=== PATIENT | female | born 1945 | race Caucasian/White ===

== ENCOUNTER 2016-12-17 14:41 | Emergency (ER) | payer OTHER, BC ==
[~2016-12-17] VITALS: Ht 152.4 cm; Wt 77.1 kg
--- NOTE | ~2016-12-17 | EKG ---
[place] [address] [facility] [place] [address] ELECTROCARDIOGRAM REPORT Name: DAVID IBRAHIM Room #: DEP [facility]#: [id number] Admission: 12/17/16 Attend Phys: Discharge: 12/17/16 Date of : 41 Report #: [id number] THIS REPORT FOR: //name// [facility] ED Test Date: 2016-12-17 Test Time: 17:16:39 Pat Name: DAVID IBRAHIM Department: Room: Gender: F Supervisor Edging: huey : 1945 Requested By: Amanda Gutierrez Order Number: [id number] MD: Lucio Post Measurements Intervals [place] Rate: 84 P: 42 MD: 265 QRS: 56 QRSD: 152 T: -22 QT: 413 QTc: 489 Interpretive Statements Sinus rhythm Ventricular premature complex Prolonged MD interval Right bundle branch block Inferior infarct, age indeterminate Compared to ECG 12/29/2012 10:50:51 Ventricular premature complex(es) now present Myocardial infarct finding still present Electronically Signed On 12-18-2016 7:51:18 CDT by uLcio Post [email or web address] <ELECTRONICALLY SIGNED> By: Lucio Post MD, [facility] 12/18/16 0751 1716 1716 Lucio Post MD, [facility] /EPI
[~2016-12-17 14:41] MED LIST: AMBIEN 5 MG TABL5 M1 PO; ASPIRIN EC81 M1 PO; BISACODYL SUPP10 MG RE; CALCIUM 500 +1 EAC5 PO; CARVEDILOL6.25 MG PO; CELEBREX 200 M200 M1 PO; COLACE100 MG PO; COREG PO; COUMADIN 2 MG TA2 M1 PO; COUMADIN 3 MG TA3 M1 PO; COUMADIN 5 MG TA5 M1 PO; COZAAR 50 MG TA50 M1 PO; DURAGESIC1 EAC2 TRANSDERM; FENTANYL PA25 MCG/HR TRANSDERM; FOSAMAX 70 MG T70 M1 PO; IMDUR 60 MG TAB60 M1 PO; IRON325 PO; LIPITOR10 MG PO; LORTAB; MAG-AL PLUS SUS30 ML PO; MIRALAX17 GM PO; NEURONTIN 300300 M1 PO; NORCO 5-325 TA1 EACH PO; PRILOSEC 20 MG20 MG PO; PRILOSEC2.5 MG; PROTONIX40 M1 PO; PROZAC 20 MG20 M1 PO; PROZAC20 MG PO; SENNA LAXATIVE1 EACH PO; TUMS PO; TYLENOL325 MG PO; ZOCOR 20 MG TAB20 M1 PO; ZOFRAN2 MG/1 ML IV
[2016-12-17] MEDS ORDERED: ASPIR 8181 MG PO (16:57)
[2016-12-17] MEDS ORDERED: BYSTOLIC 5 MG5 M1 PO (16:57)
[2016-12-17 17:34] LABS: HEMATOCRIT 42.9 % (37.0-47.0); HEMOGLOBIN 14.4 gm/dL (12.0-15.0); MCH 30.8 pg (26.0-34.0); MCHC 33.5 g/dL (28.0-37.0); PLATELET COUNT 247 thou/uL (150-400); RBC 4.67 mil/uL (4.20-5.00); RDW 14.2 % (10.5-14.5); WBC 13.5 thou/uL (4.0-11.0)
[2016-12-17 17:38] LABS: MANUAL DIFF YES
[2016-12-17 17:42] LABS: ANION GAP 10 mmol/L (7-16); BUN 21 mg/dL (7-18); CALCIUM 10.1 mg/dL (8.5-10.1); CHLORIDE 104 mmol/L (98-107); CO2 27 mmol/L (21-32); GLUCOSE 211 mg/dL (74-106); POTASSIUM 3.9 mmol/L (3.5-5.1); SODIUM 141 mmol/L (136-145)
[2016-12-17 17:49] LABS: ALBUMIN 3.7 g/dL (3.4-5.0); ALKALINE PHOSPHATASE 67 U/L (46-116); SGOT 21 U/L (15-37); SGPT 20 U/L (30-65); TOTAL BILIRUBIN 0.4 mg/dL (<0.1-1.0); TOTAL PROTEIN 7.7 g/dL (6.4-8.2); TROPONIN-I < 0.04 ng/mL (<0.04-0.07)
[2016-12-17 17:57] LABS: ABSOLUTE NEUTROPHILS 11.5 thou/uL (1.4-8.2); TOTAL CELL COUNT 100
[2016-12-17 18:24] LABS: URINE BILIRUBIN NEGATIVE (Negative); URINE BLOOD TRACE (Negative); URINE COLOR YELLOW; URINE GLUCOSE-RANDOM* NEGATIVE (Negative); URINE KETONES NEGATIVE (Negative); URINE NITRITE NEGATIVE (Negative); URINE PROTEIN (DIPSTICK) NEGATIVE (Negative); URINE SPECIFIC GRAVITY 1.015 (1.003-1.035); URINE UROBILINOGEN 0.2 E.U./dl (0.2-1.0)
[2016-12-17] MEDS ORDERED: ZOFRAN ODT4 M1 PO (18:56)
[2016-12-17 19:20] VITALS: BP 167/81
== END 2016-12-17 19:20 | disposition home or self-care (01) ==
LOC: ER 14:41
PROVIDERS: Nurse Practitioner Family
DX: K80.20 Calculus of gallbladder without cholecystitis without obstruction (principal); R19.7 Diarrhea, unspecified; I10 Essential (primary) hypertension; E78.5 Hyperlipidemia, unspecified; K21.9 Gastro-esophageal reflux disease without esophagitis; I25.810 Atherosclerosis of coronary artery bypass graft(s) without angina pectoris; F10.99 Alcohol use, unspecified with unspecified alcohol-induced disorder; I25.2 Old myocardial infarction; F41.9 Anxiety disorder, unspecified; Z86.12 Personal history of poliomyelitis; Z88.0 Allergy status to penicillin; Z88.8 Allergy status to other drugs, medicaments and biological substances

== ENCOUNTER → 2018-07-27 | Outpatient (CLI) | payer OTHER, BC ==
[~2018-07-27] MED LIST changes: +ASPIR 8181 MG PO; +BYSTOLIC 5 MG5 M1 PO; +ZOFRAN ODT4 M1 PO
--- NOTE | ~2018-07-27 | EKG ---
[place] [address] [facility] [place] [address] ELECTROCARDIOGRAM REPORT Name: DAVID IBRAHIM Room #: REG [facility]#: [id number] Admission: 07/27/18 Attend Phys: Allen Stallworth MD, F Discharge: Date of : 41 Report #: [id number] THIS REPORT FOR: //name// [facility] Test Date: 2018-07-27 Test Time: 09:36:09 Pat Name: DAVID IBRAHIM Department: Room: Gender: F Mail Inserter: Sheela WALLACE : 1945 Requested By: Allen Stallworth Order Number: [id number] MD: Measurements Intervals [place] Rate: 62 P: 75 OR: 244 QRS: 71 QRSD: 146 T: -21 QT: 433 QTc: 440 Interpretive Statements Sinus rhythm Prolonged OR interval Right bundle branch block Inferior infarct, age indeterminate Compared to ECG 12/17/2016 17:16:39 Ventricular premature complex(es) no longer present Myocardial infarct finding still present [email or web address] By: 0936 0936 Epiphany Epiphany, /EPI
== END ==
LOC: CV 08:44
DX: Z01.818 Encounter for other preprocedural examination (principal); Z90.49 Acquired absence of other specified parts of digestive tract

== ENCOUNTER → 2018-09-30 | Outpatient (CLI) | payer OTHER, BC ==
[~2018-09-30] MED LIST changes: +PROMETHAZI6.25 MG/5 PO; +TESSALON PERLE100 MG PO; +UNICOMPLEX M TA1 TA1 PO; +ZOCOR20 MG PO; +ZPAK PO
[2018-09-30 10:18] LABS: HEMATOCRIT 41.7 % (37.0-47.0); HEMOGLOBIN 14.1 gm/dL (12.0-15.0); MCH 30.8 pg (26.0-34.0); MCHC 33.9 g/dL (28.0-37.0); MCV 90.9 fL (80.0-100.0); RBC 4.58 mil/uL (4.20-5.00); RDW 13.8 % (10.5-14.5); WBC 9.2 thou/uL (4.0-11.0)
== END ==
LOC: RAD 09:29
PROVIDERS: Internal Medicine Pulmonary Disease
DX: J98.4 Other disorders of lung (principal); I70.0 Atherosclerosis of aorta; Z88.0 Allergy status to penicillin; Z88.8 Allergy status to other drugs, medicaments and biological substances

== ENCOUNTER → 2019-08-05 | Outpatient (CLI) | payer OTHER, BC | END | disposition home or self-care (01) | LOC: SJCVC 10:28 | DX: I25.10 Atherosclerotic heart disease of native coronary artery without angina pectoris (principal); I10 Essential (primary) hypertension; R05 Cough; Z79.82 Long term (current) use of aspirin; Z79.899 Other long term (current) drug therapy; Z95.1 Presence of aortocoronary bypass graft; Z96.651 Presence of right artificial knee joint; Z82.49 Family history of ischemic heart disease and other diseases of the circulatory system; Z87.891 Personal history of nicotine dependence ==

== ENCOUNTER → 2020-02-03 | Outpatient (CLI) | payer OTHER, BC | LOC: SJCVC 09:46 | PROVIDERS: ATTEND Internal Medicine Cardiovascular Disease | DX: R94.31 Abnormal electrocardiogram [ECG] [EKG] (principal); I44.0 Atrioventricular block, first degree; I45.10 Unspecified right bundle-branch block; I25.10 Atherosclerotic heart disease of native coronary artery without angina pectoris; I10 Essential (primary) hypertension; E78.5 Hyperlipidemia, unspecified; Z79.899 Other long term (current) drug therapy; Z87.891 Personal history of nicotine dependence ==

== ENCOUNTER → 2020-08-07 | Outpatient (CLI) | payer OTHER, BC | LOC: SJCVC 09:06 | PROVIDERS: ATTEND Internal Medicine | DX: I25.810 Atherosclerosis of coronary artery bypass graft(s) without angina pectoris (principal); I10 Essential (primary) hypertension; E78.5 Hyperlipidemia, unspecified; R05 Cough; Z79.82 Long term (current) use of aspirin; Z79.899 Other long term (current) drug therapy; Z95.1 Presence of aortocoronary bypass graft; Z82.49 Family history of ischemic heart disease and other diseases of the circulatory system; Z87.891 Personal history of nicotine dependence ==

== ENCOUNTER → 2020-09-18 | Outpatient (CLI) | payer OTHER, BC ==
[~2020-09-18] MED LIST changes: +BYSTOLIC10 MG PO; +PROZAC20 M1 PO
== END ==
LOC: LAB 09:00
PROVIDERS: ATTEND Specialist
DX: Z01.812 Encounter for preprocedural laboratory examination (principal); Z20.822 Contact with and (suspected) exposure to COVID-19

== ENCOUNTER → 2020-09-20 | Outpatient (CLI) | payer OTHER, BC ==
[~2020-09-20] VITALS: Ht 167.6 cm; Wt 81.6 kg
--- NOTE | ~2020-09-20 | P ---
[facility] [place] [place] [address] PROCEDURE REPORT Name: DAVID IBRAHIM [id number] Admission: 09/20/20 Attend Phys: Garrett Forte Discharge: Date of : 41 Report #: [id number] THIS REPORT FOR: cc: Peter Panda MD, Rene P. MD McElhinney, Christian C. MD ~ DATE OF SERVICE: 09/20/2020 PROCEDURE PERFORMED: Colonoscopy with biopsies. HISTORY OF PRESENT ILLNESS: The patient is a 75-year-old female who presents today for routine screening colonoscopy. Denies any symptoms. No family history of colon cancer. DESCRIPTION OF PROCEDURE: The risks and benefits of the procedure were explained to the patient, those risks including but not limited to bleeding, perforation and the risk of sedation. She understood these risks and gave informed consent. Sedation was given using propofol per anesthesia. Next, a digital rectal exam was initially performed, which showed small external hemorrhoids, otherwise normal. Next, using a standard Olympus colonoscope, the scope was placed in the patient's anus and advanced under direct vision to the cecum. The overall prep was excellent. The cecum and ileocecal valve were normal in appearance. The ascending and transverse colon were normal. In the descending colon a 5 mm sessile polyp was noted. This was removed with cold forceps, otherwise normal. The sigmoid colon was normal. The rectal mucosa was normal. On retroflexion, small nonbleeding internal hemorrhoids were noted. The scope was then withdrawn and the procedure terminated. The patient tolerated the procedure well. IMPRESSION: 1. Small colonic polyp. 2. Small internal and external hemorrhoids. 3. Otherwise, normal colonoscopy. RECOMMENDATIONS: 1. Await biopsy results. 2. If polyp is adenomatous, repeat in 5 years. Thank you for allowing me to participate in her care. By: 0907 1212 Garrett Evans MD /nt
--- NOTE | 2020-09-22 17:06 | PATH ---
[facility] [place] [address] PATHOLOGY RPT PROCEDURE Name: DAVID IBRAHIM Room #: REG [facility] M..#: [id number] Admission: 09/20/20 Date of : 41 Discharge: Report #: [id number] Path Case #: [id number] [facility] Accession Number: [id number] . 01 Material submitted: . colon - DESCENDING COLON POLYP BOPSY. Modifiers: descending . 01 Clinical history: . SCREENING COLON CANCER . 02 Diagnosis: Biopsy of descending polyp: - Hyperplastic polyp. (VALERIE:dorita; 09/22/2020) R 09/22/2020 1223 Local . 02 Electronically signed: . John Alonso MD, Pathologist NPI- [id number] . 01 Gross description: . The specimen is received in formalin, labeled "David Ibrahim BX of descending polyp" and consists of 2 fragments of pink tissue measuring 0.3 x 0.2 cm and 0.4 x 0.2 cm which are entirely submitted in A1. (SDY; 09/21/2020) SYU/SYU 09/21/2020 1312 Local . 02 Pathologist provided ICD-10: K63.5 . 02 CPT . 490669 Specimen Comment: A courtesy copy of this report has been sent to [phone] Specimen Comment: [phone] Specimen Comment: Report sent to / Performed at: 01 [facility] [address], [place] [id number] MD Jose Erickson MD Phone: [phone] Performed at: 02 [facility] [address], [place], [place] [id number] MD John Alonso MD Phone: [phone]
== END | disposition home or self-care (01) ==
LOC: GI 06:50
PROVIDERS: ATTEND Specialist
DX: Z12.11 Encounter for screening for malignant neoplasm of colon (principal); K63.5 Polyp of colon; K64.8 Other hemorrhoids; K64.4 Residual hemorrhoidal skin tags; I10 Essential (primary) hypertension; E78.00 Pure hypercholesterolemia, unspecified; I25.2 Old myocardial infarction; Z98.890 Other specified postprocedural states; Z79.899 Other long term (current) drug therapy; Z95.1 Presence of aortocoronary bypass graft; Z90.710 Acquired absence of both cervix and uterus; Z85.828 Personal history of other malignant neoplasm of skin
CPT/HCPCS: 62110; 62900

== ENCOUNTER → 2020-11-02 | Outpatient (CLI) | payer OTHER, BC ==
[2020-11-02 10:49] LABS: CREATININE 0.9 mg/dL (0.6-1.0)
== END ==
LOC: CAT 10:10
PROVIDERS: ATTEND Family Medicine
DX: N28.1 Cyst of kidney, acquired (principal); K63.89 Other specified diseases of intestine; K80.80 Other cholelithiasis without obstruction; K80.20 Calculus of gallbladder without cholecystitis without obstruction

== ENCOUNTER → 2021-02-05 | Outpatient (CLI) | payer OTHER, BC ==
[~2021-02-05] MED LIST changes: +MULTI VITAMIN1 EACH PO; +PREVAGEN PO; +ST. JOSEPH ASPI81 M1 PO
== END ==
LOC: SJCVC 09:15
PROVIDERS: ATTEND Internal Medicine
DX: R94.31 Abnormal electrocardiogram [ECG] [EKG] (principal); I44.0 Atrioventricular block, first degree; R00.1 Bradycardia, unspecified; I45.10 Unspecified right bundle-branch block; I25.810 Atherosclerosis of coronary artery bypass graft(s) without angina pectoris; I10 Essential (primary) hypertension; G47.33 Obstructive sleep apnea (adult) (pediatric); E78.5 Hyperlipidemia, unspecified; I25.10 Atherosclerotic heart disease of native coronary artery without angina pectoris; K80.00 Calculus of gallbladder with acute cholecystitis without obstruction; G89.29 Other chronic pain; K22.70 Barrett's esophagus without dysplasia; Z99.89 Dependence on other enabling machines and devices; Z79.82 Long term (current) use of aspirin; Z79.899 Other long term (current) drug therapy; Z95.1 Presence of aortocoronary bypass graft; Z86.12 Personal history of poliomyelitis; Z87.891 Personal history of nicotine dependence; Z88.0 Allergy status to penicillin

== ENCOUNTER 2021-02-08 06:15 | Day surgery (SDC) | payer OTHER, BC ==
[~2021-02-08] VITALS: Ht 157.5 cm; Wt 77.1 kg
--- NOTE | ~2021-02-08 | O ---
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 PROCEDURE: Excision of tumor of left lateral canthus, upper lid and lower lid with frozen sections and musculocutaneous flap repair based on the temporalis muscle. SURGEON: Dr. Eric Wiseman. STATE PILOT: None. ANESTHESIA: MAC. COMPLICATIONS: None. INDICATIONS FOR SURGERY: This pleasant 75-year-old woman presents with a nodular lesion in her left lateral canthus extending onto her upper lid and her lower lid in an area of a prior basal cell carcinoma resection. 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 She presents today for excision of this lesion with frozen sections and subsequent reconstruction of that defect. More extensive reconstruction is anticipated to be required since this is a recurrent lesion and the anatomy is already distorted. Informed consent was obtained to include but not limited to the potential risk for loss of vision, bleeding, infection, failure to improve the problem, and the potential need for further surgery or treatment. DESCRIPTION OF PROCEDURE: The patient was taken to the operating room where 2% Xylocaine with epinephrine mixed with equal parts 0.75% Marcaine with Wydase was administered transcutaneously and transconjunctivally to the left lower lid, the left lateral canthus, the left lateral orbit, the left upper lid, the left infratemporal fossa and the left cheek. The patient was subsequently prepped and draped in the usual sterile fashion. A fine tip skin marking pen was used to outline the lesion including approximately 2-3 mm of clear tissue. The incisions were then made perpendicularly across the upper lid drawn to the arcus marginalis and then across the lower lid drawn down to the inferior orbital rim. [address] [address] OPERATIVE REPORT Name: DAVID IBRAHIM Room #: 150-2 [facility]..#: [id number] Admission: 02/08/21 Attend Phys: Eric Wiseman MD Discharge: Date of : 41 Report #: [id number] The excision was then extended laterally towards the external auditory meatus. The dissection was carried out into the lateral orbit down to the periosteum to ensure that the best chance removing all cancerous tissue was achieved. The specimen was then oriented on a drawing for the waiting pathologist. Hemostasis was achieved in the field with diligent pinpoint monopolar cautery. The pathologist snap froze that tissue and she felt that our margins were all clear. Attention was then turned to repair the defect. It included the lower lid, the upper lid and the lateral canthus with the extension out towards the advent. A relaxing incision was then made laterally and a musculocutaneous flap developed based on the temporalis muscle. It was split vertically and then hinged medially to be drawn up to the lateral aspect of the upper and lower lid tarsal plate. The musculocutaneous flap was advanced and secured with interrupted buried 5-0 Vicryl sutures utilizing a double arm mattress suture for the deep orbital placement to retry to reconstruct the lateral canthus sharply. The more subcutaneous closure was then accomplished in a layered fashion utilizing both 5-0 Vicryl and 6-0 Vicryl sutures. The superficial temporal artery was drawn with the flap. A final closure of 6-0 plain gut was used. The wounds were then cleaned and dried and dressed with erythromycin ophthalmic ointment. The patient subsequently transported to the recovery area, having tolerated the procedure well with no anesthetic or operative complications being noted. By: 0716 0727 Erci Wiseman MD /cory
[2021-02-08 07:15] VITALS: BP 142/56
--- NOTE | 2021-02-09 17:06 | PATH ---
[facility] [place] [address] PATHOLOGY RPT PROCEDURE Name: DAVID IBRAHIM Room #: [facility]..#: [id number] Admission: 02/08/21 Date of : 41 Discharge: 02/08/21 Report #: [id number] Path Case #: [id number] [facility] Accession Number: [id number] . 01 Material submitted: . eyelid - LESION LEFT LATERAL CANTHUS UPPER LID LOWER LID FS. Modifiers: left . 01 Clinical history: . History of excision of basal cell carcinoma in the past, now with a recurrence undergoing reexcision. . 02 Frozen section diagnosis: . FROZEN SECTION DIAGNOSIS: (Ketty Reyes MD) . FSA1, Left lateral canthus/upper lid/lower lid, excision: - Negative for invasive carcinoma at margins on FS slides. . These findings are discussed with Dr. Eric Wiseman in OR6 and a written report is placed in the patient's chart. . Frozen section performed at [facility], [address] [place] [address]. . FROZEN SECTION GROSS DESCRIPTION: Specimen is received fresh from the OR labeled with the patient's name, and "lesion left lateral canthus/upper lid/lower lid", consists of a skin excision measuring 1.5 cm from medial to lateral, 1.6 cm from superior to inferior and 0.5 cm in thickness. At the medial end of the specimen the portion of the excision is represented and marked by Dr. Phillips as left lower lid, which represents the lateral most portion of the eyelid with portion of upper eyelid and lower eyelid. This tiny defect within the specimen measures 0.4 cm. The specimen is inked as follows: the lateral to inferior to medial margin is inked black, the medial wedge is inked yellow, the medial to superior margin is inked blue, and the superior to lateral margin is inked green. At this point, the specimen is serially sectioned and the medial most margin is represented as upper eyelid as well as lower eyelid (differentially inked and submitted en face) along with the remainder of the specimen in FSA1, this is subsequently submitted for permanent sections in A1. (IUV:candi; 02/08/2021) . IZV/QMS . 02 Diagnosis: Skin, lesion left lateral canthus/upper lid/lower lid, excision: - BASAL CELL CARCINOMA. [address] [address] PATHOLOGY RPT PROCEDURE Name: DAVID IBRAHIM Room #: DEP [facility] M.Judy#: [id number] Admission: 02/08/21 Date of : 41 Discharge: 02/08/21 Report #: [id number] Path Case #: [id number] - Margins free of malignancy in the sections examined. (IUV:candi; 02/09/2021) QMS 02/09/2021 1620 Local . 02 Electronically signed: . Ketty Reyes MD, Pathologist NPI- [id number] . 01 Gross description: . PLEASE SEE GROSS DESCRIPTION UNDER FROZEN SECTION DIAGNOSIS. /QMS 02/08/2021 1312 Local . 02 Pathologist provided ICD-10: C44.1191 . 02 CPT . 113784, 099059 Specimen Comment: A courtesy copy of this report has been sent to [phone] Specimen Comment: Report sent to Performed at: [address] [facility], [place], [place] [id number] MD Jose Erickson MD Phone: [phone] Performed at: [address] [facility] [id number] MD Ketty Reyes MD Phone: [phone]
== END 2021-02-08 09:00 | disposition home or self-care (01) ==
LOC: OR → TBA 06:15 → OR 09:00
PROVIDERS: ATTEND Ophthalmology
DX: C44.1191 Basal cell carcinoma of skin of left upper eyelid, including canthus (principal); I10 Essential (primary) hypertension; E78.00 Pure hypercholesterolemia, unspecified; I25.2 Old myocardial infarction; F32.9 Major depressive disorder, single episode, unspecified; Z98.890 Other specified postprocedural states; Z79.899 Other long term (current) drug therapy; Z95.1 Presence of aortocoronary bypass graft; Z90.710 Acquired absence of both cervix and uterus; Z96.651 Presence of right artificial knee joint; Z85.828 Personal history of other malignant neoplasm of skin
CPT/HCPCS: 50010; 50101; 50386; 50398; 51636; 56528; 56531; 62110; 62850; 70005

== ENCOUNTER → 2021-02-22 | Outpatient (CLI) | payer OTHER, BC | LOC: SJCVCIMAG 08:09 | PROVIDERS: ATTEND Internal Medicine | DX: I34.0 Nonrheumatic mitral (valve) insufficiency (principal); I11.9 Hypertensive heart disease without heart failure; I25.10 Atherosclerotic heart disease of native coronary artery without angina pectoris; Z95.1 Presence of aortocoronary bypass graft; Z79.82 Long term (current) use of aspirin; Z79.899 Other long term (current) drug therapy ==

== ENCOUNTER → 2021-02-27 | Outpatient (CLI) | payer OTHER, BC | LOC: SJCVCIMAG 07:41 | PROVIDERS: ATTEND Internal Medicine | DX: I44.0 Atrioventricular block, first degree (principal); I45.10 Unspecified right bundle-branch block; I49.3 Ventricular premature depolarization; I25.810 Atherosclerosis of coronary artery bypass graft(s) without angina pectoris; E78.5 Hyperlipidemia, unspecified; I10 Essential (primary) hypertension; Z88.8 Allergy status to other drugs, medicaments and biological substances; Z79.82 Long term (current) use of aspirin; Z79.899 Other long term (current) drug therapy ==

== ENCOUNTER 2021-03-21 08:03 | Day surgery (SDC) | payer OTHER, BC ==
[~2021-03-21] VITALS: Ht 157.5 cm; Wt 79.4 kg
[2021-03-21 08:58] VITALS: BP 142/57
[2021-03-21 10:00] LABS: HEMATOCRIT 41.1 % (37.0-47.0); HEMOGLOBIN 13.6 gm/dL (12.0-15.0)
[2021-03-21 12:19] VITALS: BP 142/57
--- NOTE | 2021-03-27 18:06 | PATH ---
[facility] [address] [place] [address] PATHOLOGY RPT PROCEDURE Name: DAVID IBRAHIM Room #: DEP [facility].#: [id number] Admission: 03/21/21 Date of : 41 Discharge: 03/21/21 Report #: [id number] Path Case #: [id number] [facility] Accession Number: [id number] . 01 Material submitted: . gallbladder - GALLBLADDER . 01 Clinical history: . LAPAROSCOPIC CHOLECYSTECTOMY W/GRAM SYMPTOMATIC CHOLELITHIASIS . 02 Diagnosis: Gallbladder, cholecystectomy: - Mild chronic cholecystitis. - Cholelithiasis. - Incidental lymph node. (IUV/db; 03/27/2021) LBQ 03/27/2021 1119 Local . 02 Electronically signed: . Ketty Reyes MD, Pathologist NPI- [id number] . 01 Gross description: . Fixative: Formalin Labeled: Bishop, David, gallbladder Specimen received: A previously opened gallbladder Dimensions: 8.2 x 3.2 x 1.4 cm that displays a lengthwise transmural defect (6.7 x 0.1 cm) Lymph node: Rodriguez, 0.5 x 0.4 x 0.3, bisected Serosa: Blue-green and glistening Calculi: A brown-black roughened stone (0.6 x 0.6 x 0.5 cm) Mucosa: Green and velvety without kilpatrick stippling Average wall thickness: 0.3 cm Abnormalities: None A1: Gallbladder, represented to include the entirety of the candidate lymph node (BUR[place] PAIUTE; 03/22/2021) DKA/DKA 03/22/2021 1255 Local . 02 Pathologist provided ICD-10: K80.10 . 02 CPT . 901996 Specimen Comment: A courtesy copy of this report has been sent to [phone] Specimen Comment: [phone] [place] [address] PATHOLOGY RPT PROCEDURE Name: DAVID IBRAHIM Room #: DEP [facility]#: [id number] Admission: 03/21/21 Date of : 41 Discharge: 03/21/21 Report #: [id number] Path Case #: [id number] Specimen Comment: Report sent to / DR MCLAUGHLIN Performed at: 01 [facility] [place] [address], [place] [id number] MD Jose Erickson MD Phone: [phone] Performed at: [address] [id number] MD Ketty Reyes MD Phone: [phone]
== END 2021-03-21 12:55 | disposition home or self-care (01) ==
LOC: TBA 08:03 → OR 08:03
PROVIDERS: ATTEND Surgery
DX: K80.20 Calculus of gallbladder without cholecystitis without obstruction (principal); R10.11 Right upper quadrant pain; I10 Essential (primary) hypertension; E78.00 Pure hypercholesterolemia, unspecified; I25.2 Old myocardial infarction; F32.9 Major depressive disorder, single episode, unspecified; K21.9 Gastro-esophageal reflux disease without esophagitis; Z98.890 Other specified postprocedural states; Z79.899 Other long term (current) drug therapy; Z20.822 Contact with and (suspected) exposure to COVID-19; Z87.891 Personal history of nicotine dependence; Z95.1 Presence of aortocoronary bypass graft; Z85.828 Personal history of other malignant neoplasm of skin; Z90.710 Acquired absence of both cervix and uterus; Z96.651 Presence of right artificial knee joint
CPT/HCPCS: 50010; 50101; 50411; 50455; 50555; 51975; 52265; 52266; 53307; 54022; 54118; 55245; 55317; 56462; 56524; 56525; 56526; 58574; 58910; 62110; 62900; 70005

== ENCOUNTER → 2021-08-17 | Outpatient (CLI) | payer OTHER, BC | LOC: SJCVC 10:10 | PROVIDERS: ATTEND Internal Medicine | DX: R94.31 Abnormal electrocardiogram [ECG] [EKG] (principal); I45.10 Unspecified right bundle-branch block; I25.2 Old myocardial infarction; I25.810 Atherosclerosis of coronary artery bypass graft(s) without angina pectoris; I10 Essential (primary) hypertension; E78.5 Hyperlipidemia, unspecified; G47.33 Obstructive sleep apnea (adult) (pediatric); Z95.1 Presence of aortocoronary bypass graft; Z87.891 Personal history of nicotine dependence; Z79.82 Long term (current) use of aspirin; Z79.899 Other long term (current) drug therapy; Z88.0 Allergy status to penicillin; Z88.8 Allergy status to other drugs, medicaments and biological substances ==